=== PATIENT | female | born 1985 | race Caucasian/White ===

== ENCOUNTER → 2023-04-30 | Outpatient (CLI) | payer OTHER ==
--- NOTE | 2023-05-01 12:42 | CA ---
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 67 - 155 / 56 - 104 cm??? LV Systolic Volume MOD BP 35.3 cm??? 22 - 58 / 19 - 49 cm??? LV Ejection Fraction MOD BP 52.7 % >= 55 % LV Cardiac Index MOD BP 1918.0 cm???/min???m??? LV Diastolic Volume MOD 4C 70.5 cm??? LV Systolic Volume MOD 4C 32.0 cm??? LV Ejection Fraction MOD 4C 54.6 % LV Cardiac Index MOD 4C 1883.2 cm???/min???m??? LV Diastolic Length 4C 7.8 cm LV Systolic Length 4C 6.6 cm LV Diastolic Volume MOD 2C 77.7 cm??? LV Systolic Volume MOD 2C 39.1 cm??? LV Ejection Fraction MOD 2C 49.7 % LV Cardiac Index MOD 2C 1888.9 cm???/min???m??? LV Diastolic Length 2C 7.7 cm LV Systolic Length 2C 6.6 cm Ascending Aorta Diameter 3.2 cm M-MODE Aortic Root Diameter MM 3.0 cm LA Systolic Diameter MM 3.6 cm LA Ao Ratio MM 1.2 AV Cusp Separation MM 1.8 cm DOPPLER AV Peak Velocity 127.5 cm/s AV Peak Gradient 6.5 mmHg AV Mean Velocity 97.3 cm/s AV Mean Gradient 4.0 mmHg AV Velocity Time Integral 25.1 cm LVOT Peak Velocity 104.4 cm/s LVOT Peak Gradient 4.4 mmHg LVOT Velocity Time Integral 21.5 cm Mitral E Point Velocity 70.2 cm/s Mitral A Point Velocity 62.5 cm/s Mitral E to A Ratio 1.1 MV Deceleration Time 184.8 ms LV E' Lateral Velocity 11.6 cm/s Mitral E to LV E' Lateral Ratio 6.1 LV E' Septal Velocity 8.9 cm/s Mitral E to LV E' Septal Ratio 7.8 TR Peak Velocity 169.8 cm/s TR Peak Gradient 11.5 mmHg Right Atrial Pressure 3.0 mmHg Pulmonary Artery Systolic Pressu 14.5 mmHg Right Ventricular Systolic Press 14.5 mmHg FINDINGS Left Ventricle Left ventricular cavity size normal. Left ventricular wall thickness normal. Low normal left ventricular systolic function with no obvious regional wall motion abnormalities. Left ventricular ejection fraction is estimated at 50- 55%. Right Ventricle Right ventricle at upper limits of normal. Right Atrium Normal right atrial size. Left Atrium Normal left atrial size. Mitral Valve Mitral valve thickened. No mitral regurgitation. Aortic Valve Aortic valve not well visualized. No aortic valve stenosis or regurgitation. Tricuspid Valve Structurally normal tricuspid valve. Trace tricuspid regurgitation. Pulmonic Valve Pulmonic valve not well visualized. Pericardium No pericardial effusion. Aorta Normal size aortic root and proximal ascending aorta. CONCLUSIONS Normal LV size and systolic function Previewed by: Dr. Jorge Emery MD (Electronically Signed) Final Date: 01 May 2023 12:41
== END | disposition home or self-care (01) ==
LOC: RADECHMAIN 13:47
PROVIDERS: ATTEND Internal Medicine
DX: Z01.818 Encounter for other preprocedural examination (principal)
CPT/HCPCS: 93306

== ENCOUNTER → 2023-10-11 | Outpatient (CLI) | payer OTHER | END | disposition home or self-care (01) | LOC: LABWHC1 09:42 | PROVIDERS: ATTEND Radiology Radiation Oncology | DX: C50.412 Malignant neoplasm of upper-outer quadrant of left female breast (principal) | CPT/HCPCS: 81025 ==

== ENCOUNTER → 2024-01-20 | Outpatient (CLI) | payer OTHER ==
--- NOTE | 2024-01-21 19:04 | BD ---
EXAMINATION TYPE: Axial Bone Density DATE OF EXAM: 01/20/2024 CLINICAL HISTORY: 38 years old Female. ICD-10 CODE: M81.0 AGE-RELATED OSTEOPOROSIS W/O CURRENT PATHO LO Height: 5 ft 1 in Weight: 176 FRAX RISK QUESTIONS: Alcohol (3 or more units per day): no Family History (Parent hip fracture): no Glucocorticoids (More than 3mos): yes (Ex: prednisone, prednisolone, methylprednisolone, dexamethasone, and hydrocortisone). History of Fracture in Adulthood: yes Secondary Osteoporosis: 1. Type 1 Diabetes: no 2. Hyperthyroidism: no 3. Menopause before 45: chemo induced 2022 4. Malnutrition: no 5. Chronic liver disease: no Rheumatoid Arthritis: no Current Tobacco Use: no RISK FACTORS HISTORY OF: Surgery to Spine/Hip(right/left)/Wrist (right/left): no MEDICATIONS: Thyroid Medications: none Osteoporosis Medications: none EXAM MEASUREMENTS: Bone mineral densitometry was performed using the Ninite System. Bone mineral density as measured about the Lumbar spine is: ----- L1-L4(G/cm2): 1.256 T Score Values are as follows: ----- L1: 0.6 ----- L2: 0.6 ----- L3: 1.0 ----- L4: 0.3 ----- L1-L4: 0.6 Z Score Values are as follows: ----- L1: 0.1 ----- L2: 0.1 ----- L3: 0.5 ----- L4: -0.2 ----- L1-L4: 0.1 baseline Bone mineral density about the R hip (g/cm2): 0.893 Bone mineral density about the L hip (g/cm2): 0.803 T Score values are as follows: -----R Neck: -1.7 -----L Neck: -1.0 -----R Total: -0.6 -----L Total: -0.3 Z Score values are as follows: -----R Neck: -1.7 -----L Neck: -1.0 -----R Total: -0.8 -----L Total: -0.4 baseline no frax pt too young IMPRESSION: Osteopenia (T Score between -2.5 and -1). There is slightly increased risk of fracture and the patient may be considered for treatment. Re-Screen 2-5 years. NOTE: T-SCORE=SD OF THE YOUNG ADULT MEAN. [facility], , 01/21/2024 7:02 PM
== END | disposition home or self-care (01) ==
LOC: RADBDWWP 14:15
PROVIDERS: ATTEND Internal Medicine
DX: M81.0 Age-related osteoporosis without current pathological fracture
CPT/HCPCS: 77080

== ENCOUNTER → 2024-03-17 | Outpatient (CLI) | payer OTHER ==
--- NOTE | 2024-03-17 09:58 | US ---
EXAMINATION TYPE: US abdomen complete DATE OF EXAM: 03/17/2024 COMPARISON: NONE CLINICAL INDICATION: Female, 38 years old with history of R10.9 ABD PAIN; TECHNIQUE: Grayscale and color Doppler imaging of the abdomen was performed. FINDINGS: EXAM MEASUREMENTS: Liver Length: 17.0 Gallbladder Wall: 0.2m CBD: 0.6m, color Doppler imaging was utilized to isolate the common bile duct for measurement. 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 No definite wall thickening or pericholecystic fluid a t this time. Findings suggest hepatic steatosis. [facility], , 03/17/2024 9:55 AM
== END | disposition home or self-care (01) ==
LOC: RADUSWWP 09:09
PROVIDERS: ATTEND Internal Medicine
DX: K80.20 Calculus of gallbladder without cholecystitis without obstruction (principal); K76.0 Fatty (change of) liver, not elsewhere classified
CPT/HCPCS: 76700

== ENCOUNTER → 2024-07-24 | Outpatient (CLI) | payer OTHER ==
--- NOTE | 2024-07-24 12:25 | CT ---
EXAMINATION TYPE: CT ChestAbdPelvis w con DATE OF EXAM: 07/24/2024 11:35 AM COMPARISON: 03/17/2024.. 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 Technique: CT ChestAbdPelvis w con; Multiple axial images were obtained. Two-dimensional coronal and sagittal reconstructions were obtained. Contrast used:100 ML mL of Isovue 300 with IV Contrast, (None if empty) Oral contrast used: without Oral Contrast CT DLP: 1431 mGycm, Automated exposure control for dose reduction was used. Findings: CHEST: LUNGS/ PLEURA: No focal consolidation, pneumothorax or pleural effusion. AIRWAY: Patent and unremarkable. HEART: Size within normal limits. No significant coronary artery calcifications. MEDIASTINUM: No gross evidence of adenopathy. VASCULATURE: No aortic aneurysm. MUSCULOSKELETAL: No acute osseous abnormalities. SOFT TISSUES/LYMPH NODES: Bilateral breast implants appear intact. Mild left breast skin thickening. Surgical clips in the left axilla. Skin thickening of the 5 mm. LOWER NECK: No significant findings. ABDOMEN: ABDOMEN LIVER: Diffusely hypoattenuating parenchyma. GALLBLADDER AND BILE DUCTS: Scattered gallstones present in the gallbladder lumen. PANCREAS: Unremarkable. SPLEEN: Unremarkable. ADRENAL GLANDS: Unremarkable. KIDNEYS AND URETERS: No evidence of hydronephrosis or obstructing renal calculus. The ureters are unr emarkable. PELVIS BLADDER: Unremarkable REPRODUCTIVE: Uterus is enlarged for size measuring up to 11.2 x 6.3 x 7.1 cm. Endometrium measures u p to 2.2 cm. Left ovarian cystic lesion measuring up to 7.5 x 4.6 cm with thin septation suggested. A tampon within the vagina. ABDOMEN & PELVIS STOMACH AND BOWEL: No evidence of bowel obstruction. PERITONEUM/RETROPERITONEUM: No evidence of pneumoperitoneum or free fluid. VASCULATURE: No evidence of aortic aneurysm. MUSCULOSKELETAL: No acute osseous abnormalities LYMPH NODES: No gross evidence for lymphadenopathy. SOFT TISSUE/ABDOMINAL WALL: Unremarkable IMPRESSION: 1. Posttreatment changes to the left breast with mild skin thickening. Breast implants appear intact . Left axillary surgical clips present. No enlarged lymph nodes identified. No evidence for metastati c disease at this time. 2. Enlarged left ovary with thin septation measuring 7.5 cm this predispose the patient for ovarian torsion. 3. Enlarged uterus with thickened endometrium with tampon in place. Correlate for menstruation. 4. Hepatic steatosis. 5. Cholelithiasis. [facility], , 07/24/2024 12:23 PM
== END | disposition home or self-care (01) ==
LOC: RADCTMAIN 11:00
PROVIDERS: ATTEND Internal Medicine
DX: C50.412 Malignant neoplasm of upper-outer quadrant of left female breast (principal); K76.0 Fatty (change of) liver, not elsewhere classified; K80.20 Calculus of gallbladder without cholecystitis without obstruction; R93.89 Abnormal findings on diagnostic imaging of other specified body structures; N85.2 Hypertrophy of uterus; R23.4 Changes in skin texture; Z98.82 Breast implant status; Z71.3 Dietary counseling and surveillance
CPT/HCPCS: 71260; 74177; Q9967